=== PATIENT | male | born 1940 | race Caucasian/White ===

== ENCOUNTER 2016-10-15 07:46 | Inpatient (IN) | payer OTHER ==
[2016-09-29 10:11] VITALS: BMI 29.0
--- NOTE | 2016-09-29 11:07 | PAT Medication Instructions ---
Service Date September 29, 2016. Current Home Medication List Amlodipine (Norvasc), Unknown Dose PO HS Aspirin (Aspir-81), Unknown Dose PO rarely Lisinopril (Zestril), 10 MG PO HS Naproxen (Aleve), 2 TAB PO UD PRN for Pain Simvastatin (Zocor), Unknown Dose PO HS Medication Instructions For Your Scheduled Surgery Naproxen (Aleve), 2 TAB PO UD PRN for Pain (not told to stop by surgeon- just do not take morning of surgery) - Hold the following medications evening prior to surgery: Lisinopril (Zestril), 10 MG PO HS - Take the following medications the morning of surgery with a sip of water: Aspirin (Aspir-81), Unknown Dose PO rarely - Take the following medications as scheduled the night before surgery: Simvastatin (Zocor), Unknown Dose PO HS Amlodipine (Norvasc), Unknown Dose PO HS If you have any questions please call us at [phone] or [phone] ( Shawna) or [phone]
[2016-09-29 11:39] LABS: BASO % 0.9 %; BASO ABS # 0.06 K/uL (0-0.2); COMPLETE YES; IG% 0.6 %; LYMPH % 26.1 %; LYMPH ABS # 1.83 K/uL (1.2-3.4); MEAN CELL VOLUME 96.1 fL (80-100); MEAN CORPUSCULAR HEMOGLOBIN 33.1 pg (25-34); MEAN CORPUSCULAR HGB CONC 34.5 g/dl (32-36); MONO % 9.3 %; NEUT % 61.1 %; PLATELET COUNT 292 K/uL (130-400)
--- NOTE | 2016-09-29 11:46 | DIAGNOSTIC IMAGING REPORT ---
TWO VIEW CHEST CLINICAL HISTORY: Preoperative examination. FINDINGS: PA and lateral chest radiographs are obtained. No prior studies are available for comparison at the time of dictation. The cardiomediastinal silhouette is unremarkable. There is atherosclerotic calcification of the thoracic aorta. Nonspecific interstitial thickening is observed. Nipple shadows are present the lung bases. The lungs and pleural spaces are clear. There is no pneumothorax. The skeletal structures are osteopenic. The bony thorax appears intact. IMPRESSION: No active disease in the chest. Electronically signed by: Satish Saldivar M.D. 09/29/2016 11:45 AM Dictated Date/Time: 09/29/2016 11:44 AM
[2016-09-29 11:57] LABS: PROTHROMBIN TIME (PATIENT) 10.2 SECONDS (9.0-12.0)
[2016-09-29 12:02] LABS: URINE APPEARANCE CLEAR (CLEAR); URINE BILIRUBIN NEG (NEG); URINE COLOR YELLOW; URINE NITRITE NEG (NEG); URINE PH 5.5 (4.5-7.5); URINE SPECIFIC GRAVITY 1.021 (1.000-1.030); UROBILINOGEN NEG (NEG); ZZUR CULT IF INDIC CLEAN CATCH NO
[2016-09-29 12:09] LABS: MANUAL MICROSCOPIC REQUIRED? NO; REVIEW REQ? NO
[2016-09-29 13:02] LABS: ESTIMATED AVERAGE GLUCOSE 105 mg/dl; HA1C FLAG Normal (Normal)
[2016-09-29 13:35] LABS: BUN/CREATININE RATIO 18.8 (10-20); CALCIUM 9.4 mg/dl (8.5-10.1); CREATININE 0.78 mg/dl (0.60-1.40); POTASSIUM 4.9 mmol/L (3.5-5.1)
--- NOTE | 2016-10-14 09:40 | HISTORY & PHYSICAL EXAMINATION ---
DATE OF ADMISSION: 10/15/2016 CHIEF COMPLAINT: Right hip pain. HISTORY OF PRESENT ILLNESS: The patient is a 76-year-old gentleman with known osteoarthritis about his right hip. He has pain and disability with activities of daily living. He has an antalgic gait due to the pain in the right hip. Due to the severe nature of the arthritis the only real option for him would be hip replacement. He now desires to proceed with right total hip arthroplasty. PAST MEDICAL HISTORY: Hyperlipidemia, hypertension, osteoarthritis. PAST SURGICAL HISTORY: Right and left knee replacements. MEDICATIONS: Lisinopril 10 mg daily, amlodipine besylate 10 mg daily, simvastatin 40 mg at bedtime. ALLERGIES: No known drug allergies. SOCIAL HISTORY AND REVIEW OF SYSTEMS: Noncontributory. PHYSICAL EXAMINATION: GENERAL: Well-nourished, well-developed elderly male who appears his stated age. HEAD, EYES, EARS, NOSE, AND THROAT: Normocephalic, atraumatic. Extraocular movements intact. Oropharynx pink and moist. NECK: Supple without adenopathy. LUNGS: Clear to auscultation bilaterally. HEART: Regular rate and rhythm. ABDOMEN: Soft, nontender, nondistended. EXTREMITIES: The upper extremity within normal limits. The right hip has decreased range of motion. There is limitation of active and passive internal/external rotation with pain at end range. X-RAYS: X-rays were reviewed. He has severe osteoarthritis about the right hip with complete loss of the joint space. There is osteophyte formation about the femoral head and acetabulum. There are cystic changes in the femoral head and acetabulum. ASSESSMENT: Right hip degenerative joint disease. PLAN: Risks versus benefits were discussed. Consent was obtained. The patient's primary care physician is Irvin Camargo from [place]. Will proceed with right total hip arthroplasty upon preoperative workup and medical clearance.
[2016-10-15] VITALS (8 sets, daily range): BP systolic 111–165; BP diastolic 67–89; PULSE 62–81; TEMP 36.4–36.7; O2SAT 94–98; Ht 170.2 cm; Wt 84.6 kg
[~2016-10-15] VITALS: Ht 170.2 cm; Wt 84.6 kg
[~2016-10-15 07:46] MED LIST: ACETAMINOPHEN 500 MG TAB PO SCH; ASPI-232 PO; BUPIVACAINE 0.5 % 5 MG/1 ML PF 10ML VIAL ONE; CEFAZOLIN 2000 MG/60 ML D5W 60 ML IV SCH; CeleBREX 200 MG CAP PO SCH; DEXAMETHASONE 4 MG TAB PO SCH; DILT120C68 PO; FAMOTIDINE 20 MG TAB PO SCH; GABAPENTIN 300 MG CAP PO SCH; LACTATED RINGER'S 1000ML 1,000 ML IV SCH; LACTATED RINGER'S 1000ML 500 ML IV ONE; LACTATED RINGER'S 1000ML IV SCH; LISI-461 PO; METOCLOPRAMIDE HCL 10 MG TAB PO SCH; NAPR1TAB9 PO; SIMV5TAB2 PO
[2016-10-15] MEDS ORDERED: MIDAZOLAM HCL 1 MG/ML 2ML VIAL ONE ×2 (08:35)
[2016-10-15] MEDS ORDERED: FENTANYL CITRATE INJ 50 MCG/1 ML 2 ML VIAL ONE (08:35)
--- NOTE | 2016-10-15 09:12 | History & Physical Bridge Note ---
H&P Re-Evaluation Bridge Note: I have examined the patient, reviewed the History & Physical and in the interval since the performance of the History & Physical I have noted the following changes of clinical significance: No changes noted
[2016-10-15] MEDS ORDERED: BACITRACIN 50000 UNIT VIAL ONE (09:31)
[2016-10-15] MEDS ORDERED: ORTHO JOINT ANESTHETIC ONE (09:31)
[2016-10-15] MEDS ORDERED: POVIDONE-IODINE OP SOLN 30 ML BTL ONE (09:31)
[2016-10-15] MEDS ORDERED: KETOROLAC TROMETHAMINE 30 MG/ML VIAL IV. PRN (10:00)
[2016-10-15] MEDS ORDERED: PHENYLEPHRINE 100MCG/ML 5ML SYR IV PRN (10:00)
[2016-10-15] MEDS ORDERED: EpHEDrine SULFATE INJ 50 MG/ML AMP IV PRN (10:00)
[2016-10-15] MEDS ORDERED: HYDROmorphone INJ 2 MG/ML SYR/VIAL IV PRN (10:00)
[2016-10-15] MEDS ORDERED: ATROPINE SULFATE 0.1 MG/ML 5ML SYR IV PRN (10:00)
[2016-10-15] MEDS ORDERED: ONDANSETRON INJ 2 MG/ML 2 ML VIAL IV PRN ×2 (10:00→11:45)
[2016-10-15] MEDS ORDERED: PROPOFOL IV EMULSION 10 MG/ML 20 ML VIAL IV ONE (10:35)
[2016-10-15] MEDS ORDERED: LIDOCAINE HCL 2% 2 ML VIAL (20MG/ML) ONE (10:35)
[2016-10-15] MEDS ORDERED: PHENYLEPHRINE 100MCG/ML 5ML SYR ONE (10:35)
[2016-10-15] MEDS ORDERED: MoRPHine SULFATE 2 MG/ML CARP IV PRN (11:45)
[2016-10-15] MEDS ORDERED: MAGNESIUM HYDROXIDE SUSP 30 ML UDC PO PRN (11:45)
[2016-10-15] MEDS ORDERED: ZOLPIDEM TARTRATE 5 MG TAB PO PRN (11:45)
[2016-10-15] MEDS ORDERED: ALUMINUM/MAGNESIUM/SIMETH (MAALOX MAX) 30 ML UDC PO PRN (11:45)
[2016-10-15] MEDS ORDERED: METOCLOPRAMIDE HCL INJ 5 MG/ML 2 ML VIAL IV PRN (11:45)
[2016-10-15] MEDS ORDERED: TAMSULOSIN HCL 0.4 MG CAP PO PRN (11:45)
[2016-10-15] MEDS ORDERED: OXYCODONE HCL IR 5 MG TAB (IMMEDIATE RELEASE) PO PRN (11:45)
--- NOTE | 2016-10-15 12:09 | OPERATIVE REPORT ---
DATE OF OPERATION: 10/15/2016 PREOPERATIVE DIAGNOSIS: Osteoarthritis right hip. POSTOPERATIVE DIAGNOSIS: Osteoarthritis right hip. PROCEDURE: Right connective total hip arthroplasty. SURGEON: Dr. Sandoval. HEAD LIBRARIAN: Osbaldo Morris PA-C. ANESTHESIA: spinal COMPLICATIONS: None. OPERATION AND FINDINGS: PROCEDURE: Following induction of adequate spinal anesthesia, the patient was placed in left lateral decubitus position and right Gauri-Langenbeck incision was made. Subcutaneous tissue was sharply dissected. Electrocautery used for hemostasis. The fascia was incised throughout the length of the wound and a cagle scissor placed beneath the short external rotators. The pyriformis was tagged with #1 Vicryl. The short external rotators were divided from the posterior aspect of the femur using electrocautery. These were swept posteriorly. A T-capsulotomy incision was made and the hip was dislocated using a combination of flexion, adduction, and internal rotation. Exposure of the femoral neck with old-style Hohmann and a blunt Hohmann was carried out and a femoral rasp was utilized as a guide for making the appropriate level femoral neck cut. This bone fragment was removed and reserved on the back table. Next, attention was turned to the acetabulum where bone hook was used to retract the femur while the offset retractors were placed anterior and posteriorly. A double-angled Hohmann was placed in superior and anterior position exposing the acetabulum nicely. Acetabular labrum as well as posterior capsule elements were removed using a long knife and a long pickup. Fovea centralis was cleared of all soft tissue. Sequential reamings were carried up to a 56 and decision was made to proceed with impaction of a 56 trabecular metal cup. This was impacted and held using a single 35 mm bone screw. The acetabular liner was placed with 15 of elevated posterior wall in the superior and posterior position. Next, attention was turned to the femoral portion of the case where a Bovie and pickup was used to further clear short external rotators from their insertion on the femur. Box osteotome was used to gain access to the femoral canal and the T-handled rasp and a rattail rasp were used to further open and lateral the canal. Sequentially raspings were carried up to a size 4 which gave good fit and fill of the proximal femur. A trial reduction was carried out and size 4 offset femoral neck component was chosen as the size to be used. A -2.5 x 36 mm ceramic femoral head was impacted into position, +0 head was utilized. The trial reduction was stable in all degrees of rotation with no [id number] impingement. The hip was dislocated. The trial components were removed and the final femoral stem, neck, and femoral head combination were assembled on the back table and impacted into position. Hip was relocated. Range of motion checked once again successful and the wound was irrigated. The pyriformis repaired to the greater trochanter using #1 Vicryl [id number] suture. A Hemovac drain was placed and the fascia was closed using #1 Vicryl, subcutaneous tissue was closed using 0 Dexon, and skin was closed with madina. Sterile dressing of Adaptic, 4 x 4's, ABDs, and foam tape was applied. The patient tolerated the procedure well. Recovery room stable. Due to the complex nature of the procedure, the entire surgery was performed with the operational assistance of Osbaldo Morris PA-C. The export sales assistant, under direct supervision, was involved in the actual performance of all aspects of the surgical procedure including hemostasis, tissue retraction and incision, instrument management, patient positioning, and wound closure. I attest to the content of the Intraoperative Record and any orders documented therein. Any exceptions are noted below. RHEA
--- NOTE | 2016-10-15 12:26 | DIAGNOSTIC IMAGING REPORT ---
AP PELVIS AND RIGHT HIP 2 VIEWS CLINICAL HISTORY: Postop hip arthroplasty COMPARISON STUDY: No previous studies for comparison. FINDINGS: There are postsurgical changes of a total right hip arthroplasty. There is no dislocation. No acute fractures are visualized. Overlying skin madina and surgical drains are evident. IMPRESSION: Postsurgical changes of a total right hip arthroplasty. Electronically signed by: Francisco Brand M.D. 10/15/2016 12:25 PM Dictated Date/Time: 10/15/2016 12:24 PM
[2016-10-15] MEDS ORDERED: MoRPHine SULFATE 4 MG/ML 1 ML CARP\\VIAL IV PRN (13:00)
[2016-10-15] MEDS ORDERED: MoRPHine SULFATE 10 MG/ML CARP/VIAL IV PRN (13:00)
--- NOTE | 2016-10-15 13:26 | Anesthesiology Progress Note ---
Anesthesia Post Op Note Date & Time Oct 15, 2016 at 13:27 Vital Signs Pain Intensity: 0 Vital Signs Past 12 Hours Date Time Temp Pulse Resp B/P (MAP) Pulse Ox O2 Delivery O2 Flow Rate FiO2 10/15/16 12:37 104/63 10/15/16 12:33 61 13 10/15/16 12:33 62 13 97 10/15/16 12:32 98/63 10/15/16 12:28 55 10 95 10/15/16 12:28 55 10 10/15/16 12:27 103/58 10/15/16 12:23 58 9 94 10/15/16 12:23 37.0 55 16 103/58 (69) 96 Nasal Cannula 2 10/15/16 12:23 58 9 10/15/16 12:22 97/60 10/15/16 12:18 63 19 10/15/16 12:18 63 19 99 10/15/16 12:17 106/63 10/15/16 12:13 61 14 10/15/16 12:13 61 14 96 10/15/16 12:12 112/58 10/15/16 12:08 62 14 10/15/16 12:08 62 14 99 10/15/16 12:07 100/53 10/15/16 12:03 54 10 10/15/16 12:03 54 10 100 10/15/16 12:02 83/52 10/15/16 11:58 52 12 99 10/15/16 11:58 53 12 10/15/16 11:57 103/56 10/15/16 11:53 56 12 100 10/15/16 11:53 57 12 10/15/16 11:52 103/54 10/15/16 11:48 58 14 97 10/15/16 11:48 60 14 10/15/16 11:47 99/54 10/15/16 11:43 59 19 100 10/15/16 11:43 60 19 10/15/16 11:42 98/53 10/15/16 11:38 61 16 10/15/16 11:38 62 16 95 10/15/16 11:37 94/55 10/15/16 11:35 98/56 10/15/16 11:34 91/55 10/15/16 11:33 61 10/15/16 11:33 36.4 60 16 98/56 96 Mask 10 10/15/16 11:33 61 90 10/15/16 08:25 36.4 80 20 165/88 96 Room Air Notes Mental Status: alert / awake / arousable, participated in evaluation Pt Amnestic to Procedure: Yes Nausea / Vomiting: adequately controlled Pain: adequately controlled Airway Patency, RR, SpO2: stable & adequate BP & HR: stable & adequate Hydration State: stable & adequate Anesthetic Complications: no major complications apparent
[2016-10-15] MEDS: KETOROLAC TROMETHAMINE 15 MG/ML VIAL IV. SCH ×2 (14:06→20:02)
[2016-10-15] MEDS: D5W AND 1/2NSS + 20MEQ KCL 1,000 ML IV SCH ×2 (14:06→23:32)
[2016-10-15] MEDS: ACETAMINOPHEN 500 MG TAB PO SCH ×2 (14:07→21:49)
[2016-10-15] MEDS: FERROUS GLUCONATE 324 MG TAB PO SCH (17:55)
[2016-10-15] MEDS: CEFAZOLIN IV 2,000 MG in DEXTROSE 5% 50ML 50 ML IV SCH (17:56)
[2016-10-15] MEDS: DOCUSATE SODIUM 100 MG CAP PO SCH (21:48)
[2016-10-15] MEDS: ASPIRIN 81 MG ECTAB PO SCH (21:48)
[2016-10-15] MEDS: PREGABALIN 75 MG CAP PO SCH (21:49)
[2016-10-16] MEDS: KETOROLAC TROMETHAMINE 15 MG/ML VIAL IV. SCH ×2 (02:12→07:49)
[2016-10-16] MEDS: CEFAZOLIN IV 2,000 MG in DEXTROSE 5% 50ML 50 ML IV SCH (02:12)
[2016-10-16 03:38] VITALS: BP 119/72; PULSE 70; TEMP 36.5; O2SAT 94
[2016-10-16] MEDS: ACETAMINOPHEN 500 MG TAB PO SCH ×3 (06:01→21:50)
[2016-10-16 06:37] LABS: COMPLETE YES; HEMATOCRIT 32.5 % (42-52); IG% 0.3 %; LYMPH % 4.2 %; LYMPH ABS # 0.66 K/uL (1.2-3.4); MEAN CELL VOLUME 92.9 fL (80-100); MEAN CORPUSCULAR HEMOGLOBIN 32.9 pg (25-34); MEAN CORPUSCULAR HGB CONC 35.4 g/dl (32-36); MEAN PLATELET VOLUME 9.2 fL (7.4-10.4); MONO % 7.8 %; NEUT % 87.7 %; PLATELET COUNT 253 K/uL (130-400); WHITE BLOOD COUNT 15.82 K/uL (4.8-10.8)
[2016-10-16 07:03] LABS: BUN/CREATININE RATIO 20.3 (10-20); CALCIUM 8.2 mg/dl (8.5-10.1); CREATININE 0.91 mg/dl (0.60-1.40); POTASSIUM 4.6 mmol/L (3.5-5.1)
[2016-10-16 07:10] VITALS: BP 145/83; PULSE 80; TEMP 36.3; O2SAT 95
[2016-10-16] MEDS ORDERED: DEXAMETHASONE INJ 10 MG in SYRINGE 0 ML IV ONE (07:30)
--- NOTE | 2016-10-16 07:33 | Orthopedic Progress Note ---
Orthopedic Progress Note Date of Service Oct 16, 2016. Subjective Post OP Day: 1 Reports: feeling well Objective calves soft nontender, N/V intact, dressing C/D/I (Hemovac in place), toes mobile Date Time Temp Pulse Resp B/P (MAP) Pulse Ox O2 Delivery O2 Flow Rate FiO2 10/16/16 07:10 36.3 80 19 145/83 (103) 95 Room Air 10/16/16 03:38 36.5 70 12 119/72 (88) 94 Room Air 10/15/16 23:30 Room Air 10/15/16 23:20 36.5 75 14 113/72 (86) 94 Room Air 10/15/16 20:00 36.4 81 18 138/89 (105) 98 Nasal Cannula 2.0 10/15/16 16:00 Room Air 10/15/16 15:55 36.7 73 18 128/81 (97) 95 Nasal Cannula 2.0 10/15/16 14:50 36.6 73 18 150/79 (102) 96 Nasal Cannula 4.0 10/15/16 13:55 73 16 129/83 (98) 98 Nasal Cannula 2.0 10/15/16 13:25 36.4 66 16 127/83 (98) 97 Nasal Cannula 2.0 10/15/16 12:55 95 Nasal Cannula 2.0 10/15/16 12:55 95 Nasal Cannula 2.0 10/15/16 12:55 36.4 62 16 111/67 (82) 95 Nasal Cannula 2.0 10/15/16 12:37 104/63 10/15/16 12:33 61 13 10/15/16 12:33 62 13 97 10/15/16 12:32 98/63 10/15/16 12:28 55 10 95 10/15/16 12:28 55 10 10/15/16 12:27 103/58 10/15/16 12:23 58 9 94 10/15/16 12:23 37.0 55 16 103/58 (69) 96 Nasal Cannula 2 10/15/16 12:23 58 9 10/15/16 12:22 97/60 10/15/16 12:18 63 19 10/15/16 12:18 63 19 99 10/15/16 12:17 106/63 10/15/16 12:13 61 14 10/15/16 12:13 61 14 96 10/15/16 12:12 112/58 10/15/16 12:08 62 14 10/15/16 12:08 62 14 99 10/15/16 12:07 100/53 10/15/16 12:03 54 10 10/15/16 12:03 54 10 100 10/15/16 12:02 83/52 10/15/16 11:58 52 12 99 10/15/16 11:58 53 12 10/15/16 11:57 103/56 10/15/16 11:53 56 12 100 10/15/16 11:53 57 12 10/15/16 11:52 103/54 10/15/16 11:48 58 14 97 10/15/16 11:48 60 14 10/15/16 11:47 99/54 10/15/16 11:43 59 19 100 10/15/16 11:43 60 19 10/15/16 11:42 98/53 10/15/16 11:38 61 16 10/15/16 11:38 62 16 95 10/15/16 11:37 94/55 10/15/16 11:35 98/56 10/15/16 11:34 91/55 10/15/16 11:33 61 10/15/16 11:33 36.4 60 16 98/56 96 Mask 10 10/15/16 11:33 61 90 10/15/16 08:25 36.4 80 20 165/88 96 Room Air Laboratory Results 24 Hours: Test 10/16/16 06:18 White Blood Count 15.82 K/uL Red Blood Count 3.50 M/uL Hemoglobin 11.5 g/dL Hematocrit 32.5 % Mean Corpuscular Volume 92.9 fL Mean Corpuscular Hemoglobin 32.9 pg Mean Corpuscular Hemoglobin Concent 35.4 g/dl Platelet Count 253 K/uL Mean Platelet Volume 9.2 fL Neutrophils (%) (Auto) 87.7 % Lymphocytes (%) (Auto) 4.2 % Monocytes (%) (Auto) 7.8 % Eosinophils (%) (Auto) 0.0 % Basophils (%) (Auto) 0.0 % Neutrophils # (Auto) 13.87 K/uL Lymphocytes # (Auto) 0.66 K/uL Monocytes # (Auto) 1.24 K/uL Eosinophils # (Auto) 0.00 K/uL Basophils # (Auto) 0.00 K/uL Assessment & Plan Assessment: 76 yo male stable POD #1 s/p right DRAKE Plan: 1. Med management 2. DVT prophylaxis- ASA, TEDs, SCDs 3. PT/OT 4. D/C planning- home w/ HH
--- NOTE | 2016-10-16 07:37 | Discharge Instructions ---
Discharge Instructions Date of Service Oct 16, 2016. Admission Reason for Admission: Right Hip Pain Discharge Discharge Diagnosis / Problem: Right hip arthritis Discharge Goals Goal(s): Decrease discomfort, Improve function Activity Recommendations Activity Limitations: as noted below Weightbearing Status: Right weightbearing (as tolerated) . Instructions / Follow-Up Instructions / Follow-Up ACTIVITY RECOMMENDATIONS: SELF CARE INSTRUCTIONS AFTER TOTAL HIP REPLACEMENT Until the incision and soft tissues around your hip have healed, there is a possibility that the hip prosthesis could dislocate. A. Observe the following precautions to prevent dislocation: 1. Don't bend your hip greater than 90 degrees. 2. Avoid crossing your legs or ankles while standing or lying. 3. Sit with your feet placed 6 inches apart. 4. When sitting, keep your knees below your hips. Sit on a firm surface, avoid deep, soft chairs and couches. Use an elevated toilet seat in the bathroom. 5. Don't bend over at the waist. Use a long handled shoehorn and a sock aid to help you put on your shoes and socks. A solder leveler printed circuit boards can help you forklift picker objects that are too high or too low to reach. 6. Keep car riding to a minimum for at least one month after surgery. B. Your balance may be shaky for a while. Use crutches or a walker until directed by your doctor. C. Use hand rails when walking on stairs. D. Wear low heeled shoes with non-slip soles. E. Be sure that your floors are free of things that could trip you - throw rugs , electrical cords, small objects. Avoid wet and waxed floors, especially with crutches and canes. F. Try to walk several times a day with rest periods between. G. Continue with all the exercises taught to you in the hospital. Again, make walking a part of your daily routine. SPECIAL CARE INSTRUCTIONS: VERY IMPORTANT TO READ AND REVIEW A. You may still be at risk for phlebitis and blood clots. 1. Wear surgical stockings (MELLO hose) for 2 weeks after surgery to improve circulation and reduce swelling. 2. Take Aspirin 81mg twice daily for 4 weeks or as directed by your doctor. This is your blood thinner. 3. High risk patients may be prescribed a stronger blood thinner if necessary. 4. If you are on Coumadin normally, your family doctor/dining room manager should monitor your blood work. Expect a phone call the day of or the day after bloodwork is drawn to adjust your dosage. B. You must take antibiotics before having dental work, bladder, bowel and other surgery. Your doctor will provide you with a permanent card to carry describing precautions. C. Call [facility] if you have a fever, redness or swelling around the incision, cloudy drainage from incision, or sudden increase in pain in your hip, not relieved by your regular pain medication. D. Please call the office at if you have any concerns or questions about your operation or recovery. * YOU MAY SHOWER, NO TUB BATHS UNTIL CLEARED BY YOUR DOCTOR. * WEAR MELLO HOSE 20 HOURS PER DAY FOR 2 WEEKS. * YOU SHOULD USE A WALKER OR CRUTCHES FOR 2-4 WEEKS. THIS WILL HELP PREVENT STRAIN ON YOUR HIP MUSCLE AND ALLOW IT TO HEAL PROPERLY. YOU MAY WEAN TO A CANE TOLERATED. * MOST PATIENTS WILL HAVE HOME NURSING FOR THERAPY. IF YOU DECIDE TO DO OUTPATIENT PHYSICAL THERAPY, PLEASE SCHEDULE THIS 3 TIMES PER WEEK. Silverlon- This is a large adhesive bandage that contains silver ions. This helps your incision heal by fighting off bacteria and protecting it from the outside environment. You are permitted to shower with this dressing. This will remain on your incision for 7 days and then should be removed. Some visible blood or drainage through the dressing window is normal. If there is significant drainage or leaking noted before the 7 days notify your doctor's office immediately. Once removed, keep incision clean and dry. If there is any drainage or redness noted, please call your surgeon. FOLLOW UP VISIT: If appointment is not already scheduled: Please call [facility] to make a follow-up appointment for 2 weeks after your surgery at . Current Hospital Diet Patient's current hospital diet: Regular Diet Discharge Diet Recommended Diet: Regular Diet Procedures Procedures Performed: Right Total Hip Arthroplasty;Uncemented Pending Studies Studies pending at discharge: no Laboratory Results Hemoglobin A1c Test 09/29/16 11:12 Range/Units Estimated Average Glucose 105 mg/dl Hemoglobin A1c 5.3 4.5-5.6 % Medical Emergencies . Who to Call and When: Medical Emergencies: If at any time you feel your situation is an emergency, please call 911 immediately. . Non-Emergent Contact Non-Emergency issues call your: Surgeon Call Non-Emergent contact if: temperature is above 101.5, your pain is not controlled, wound has increased drainage, wound has increased redness . "Provider Documentation" section prepared by Osbaldo Morris PA-C. . VTE Core Measure Inpt VTE Proph given/why not?: Other Anticoagulation (ASA 81mg bid), T.E.D. Stockings, SCD's [place] Drug Monitoring Program Search Results: patient reviewed within database, no issues identified
[2016-10-16 07:45] VITALS: O2SAT 95
[2016-10-16] MEDS: FERROUS GLUCONATE 324 MG TAB PO SCH ×3 (07:57→18:16)
--- NOTE | 2016-10-16 08:06 | Anesthesiology Progress Note ---
Anesthesia Post Op Note Date & Time Oct 16, 2016 at 08:06 Vital Signs Pain Intensity: 0.0 Vital Signs Past 12 Hours Date Time Temp Pulse Resp B/P (MAP) Pulse Ox O2 Delivery O2 Flow Rate FiO2 10/16/16 07:10 36.3 80 19 145/83 (103) 95 Room Air 10/16/16 03:38 36.5 70 12 119/72 (88) 94 Room Air 10/15/16 23:30 Room Air 10/15/16 23:20 36.5 75 14 113/72 (86) 94 Room Air Notes Mental Status: alert / awake / arousable, participated in evaluation Pt Amnestic to Procedure: Yes Nausea / Vomiting: adequately controlled Pain: adequately controlled Airway Patency, RR, SpO2: stable & adequate BP & HR: stable & adequate Hydration State: stable & adequate Neuraxial Anesthesia: sensory block resolved Anesthetic Complications: no major complications apparent
[2016-10-16] MEDS: PREGABALIN 75 MG CAP PO SCH ×2 (08:52→21:50)
[2016-10-16] MEDS: ASPIRIN 81 MG ECTAB PO SCH ×2 (08:52→22:10)
[2016-10-16] MEDS: DOCUSATE SODIUM 100 MG CAP PO SCH ×2 (08:52→22:10)
[2016-10-16] MEDS: MULTIVITAMIN TAB PO SCH (08:52)
[2016-10-16] MEDS: DILTIAZEM HCL 120 MG EXT REL CAP PO SCH (08:53)
[2016-10-16] MEDS: PANTOprazole SOD 40 MG TAB PO SCH (08:53)
[2016-10-16] MEDS: SIMVASTATIN 40 MG TAB PO SCH (08:54)
[2016-10-16] MEDS: LISINOPRIL 10 MG TAB PO SCH (08:54)
[2016-10-16 11:09] VITALS: BP 134/79; PULSE 83; TEMP 36.5; O2SAT 96
[2016-10-16 15:35] VITALS: BP 126/69; PULSE 73; TEMP 36.5; O2SAT 96
[2016-10-16] MEDS: CeleBREX 200 MG CAP PO SCH (21:50)
[2016-10-16 23:09] VITALS: BP 118/68; PULSE 62; TEMP 36.6; O2SAT 99
[2016-10-17] MEDS: ACETAMINOPHEN 500 MG TAB PO SCH (05:23)
[2016-10-17 06:10] VITALS: BP 136/74; PULSE 71; TEMP 36.6; O2SAT 94
[2016-10-17] MEDS: ASPIRIN 81 MG ECTAB PO SCH (07:27)
[2016-10-17] MEDS: PANTOprazole SOD 40 MG TAB PO SCH (07:28)
[2016-10-17] MEDS: DOCUSATE SODIUM 100 MG CAP PO SCH (07:28)
[2016-10-17] MEDS: MULTIVITAMIN TAB PO SCH (07:28)
[2016-10-17] MEDS: FERROUS GLUCONATE 324 MG TAB PO SCH ×2 (07:28→12:44)
[2016-10-17] MEDS: LISINOPRIL 10 MG TAB PO SCH (07:28)
[2016-10-17] MEDS: CeleBREX 200 MG CAP PO SCH (07:29)
[2016-10-17] MEDS: DILTIAZEM HCL 120 MG EXT REL CAP PO SCH (07:29)
[2016-10-17] MEDS: PREGABALIN 75 MG CAP PO SCH (07:33)
--- NOTE | 2016-10-17 08:03 | Orthopedic Progress Note ---
Orthopedic Progress Note Date of Service Oct 17, 2016. Subjective Post OP Day: 2 Reports: feeling well Objective calves soft nontender, N/V intact, dressing C/D/I, toes mobile Date Time Temp Pulse Resp B/P (MAP) Pulse Ox O2 Delivery O2 Flow Rate FiO2 10/17/16 06:10 36.6 71 19 136/74 (94) 94 Room Air 10/17/16 00:30 Room Air 10/16/16 23:09 36.6 62 18 118/68 (85) 99 Room Air 10/16/16 15:35 36.5 73 20 126/69 (88) 96 Room Air 10/16/16 15:25 Room Air 10/16/16 11:09 36.5 83 17 134/79 (97) 96 Room Air Assessment & Plan Assessment: 76 yo male stable POD #2 s/p right DRAKE Plan: 1. Med management 2. DVT prophylaxis- ASA, TEDs, SCDs 3. PT/OT 4. D/C planning- home w/ HH
[2016-10-17] MEDS ORDERED: ACET-1138 PO (08:04)
[2016-10-17] MEDS ORDERED: CLB200 PO (08:04)
[2016-10-17] MEDS ORDERED: RXC5 PO (08:04)
[2016-10-17] MEDS ORDERED: ASPEC81 PO (08:04)
[2016-10-17 08:19] VITALS: BP 138/64; PULSE 72; TEMP 36.4; O2SAT 97
[2016-10-17] MEDS: SIMVASTATIN 40 MG TAB PO SCH (08:49)
[2016-10-17 09:20] VITALS: O2SAT 97
[2016-10-17 09:46] VITALS: BP 138/64; PULSE 72; O2SAT 97
[2016-10-17 11:34] VITALS: BP 138/64; PULSE 72; TEMP 36.4; O2SAT 97
[2016-10-17 12:13] VITALS: BP 122/62; PULSE 66; TEMP 36.4; O2SAT 96
--- NOTE | 2016-10-28 15:11 | DISCHARGE SUMMARY ---
CHIEF COMPLAINT: Right hip pain. Please see complete history and physical examination. HOSPITAL COURSE: The patient underwent right total hip arthroplasty without complication. He tolerated the procedure well and was discharged to recovery room in stable condition. His postoperative course was relatively uneventful. His postoperative pain was reasonably well controlled with a combination of spinal anesthesia, intraoperative joint injection, IV, and oral pain medications. He was started on aspirin for DVT prophylaxis. He also utilized MELLO stockings and SCDs for additional prophylaxis. His H&H was stable and did not require transfusion. His surgical drain was removed on postop day 2. Surgical dressing will remain in place for approximately 7 days postoperative. He tolerated postop physical therapy reasonably well as he was ambulating and transferring appropriately. Observing all total hip precautions. He was discharged home on postoperative day 2. He will continue his physical therapy at home. He will continue his aspirin for DVT prophylaxis and follow up in our office in approximately 10-14 days for his initial postop evaluation.
== END 2016-10-17 13:42 | disposition home health service (06) | DRG 470 ==
LOC: C.ACU 07:46 → C.3E 11:35 → ENRESERV 12:28
PROC: 0SR903Z Replacement of Right Hip Joint with Ceramic Synthetic Substitute, Open Approach (ICD-10-PCS; principal; 2016-10-15 10:30)
DX: M16.11 Unilateral primary osteoarthritis, right hip (principal); E78.5 Hyperlipidemia, unspecified; I10 Essential (primary) hypertension; Z96.659 Presence of unspecified artificial knee joint